=== PATIENT | male | born 2005 | race Caucasian/White ===

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

== ENCOUNTER 2024-02-14 15:49 | Emergency (ER) | payer MEDICAID, OTHER ==
[~2024-02-14] VITALS: Ht 177.8 cm; Wt 72.7 kg
[2024-02-14] MEDS ORDERED: KEN0.1O TP (16:40)
[2024-02-14] MEDS ORDERED: HYDR-3686 PO (16:41)
[2024-02-14 16:49] VITALS: BP 108/70; PULSE 70; RESP 16; TEMP 98.5; O2SAT 97
== END 2024-02-14 16:50 | disposition home or self-care (01) ==
LOC: ER 15:50
DX: L20.89 Other atopic dermatitis (principal); Z79.899 Other long term (current) drug therapy; Z90.49 Acquired absence of other specified parts of digestive tract
CPT/HCPCS: 99283

== ENCOUNTER 2024-11-23 15:30 | Outpatient (CLI) | payer MEDICAID ==
--- NOTE | 2024-11-24 07:27 | RADIOLOGY REPORT ---
CLINICAL HISTORY: Left knee pain. COMPARISON: None TECHNIQUE: Multisequence multiplanar MRI images of the left knee were obtained without contrast. FINDINGS: Cruciate ligaments: There is edema along the course of the ACL with mild indistinctness and irregular contour of the ACL fibers at its midportion and near its tibial attachment, suspicious for sprain an d partial tear in the appropriate clinical setting. No secondary signs of acute ACL injury. PCL is in tact. Extensor mechanism: Quadriceps mechanism and patellar tendon are intact. Collateral ligaments: Medial and lateral collateral ligaments are intact and otherwise unremarkable. Menisci: There is thin, vertically oriented intrasubstance signal in the body of the medial meniscus with questionable extension to the femoral articular surface, possible small peripheral longitudinal tear (series 5 images 13-15). Lateral meniscus is intact. Cartilage: No focal chondral defect or significant chondromalacia. Bones: No acute fracture or focal marrow contusion. Joint fluid: No significant joint effusion. Other: Motion artifact limits evaluation on some sequences. IMPRESSION: 1. Edema along the course of the ACL with indistinctness and irregular contour of the ACL fibers at i ts midportion and near its tibial attachment, suspicious for sprain and partial tear in the appropria te clinical setting, however no secondary signs of ACL injury are seen. Correlate with clinical find ings. 2. Vertically oriented intrasubstance signal in the body of the medial meniscus with questionable ext ension to the femoral articular surface, possible small peripheral longitudinal tear. 3. Motion artifact limits evaluation on some sequences.
== END 2024-11-23 23:59 | disposition home or self-care (01) ==
LOC: MRI02 15:30
PROVIDERS: ATTEND Family Medicine
DX: M25.562 Pain in left knee (principal); R60.0 Localized edema
CPT/HCPCS: 73721